=== PATIENT | female | born 1960 | race American Indian/Alaskan Native ===

== ENCOUNTER 2016-08-11 07:21 | Emergency (ER) | payer MEDICAID, OTHER ==
[2016-08-11] MEDS ORDERED: TORADOL IM ONE (09:11)
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
[2016-08-11] MEDS ORDERED: MOTRIN ONE (09:51)
[2016-08-11] MEDS ORDERED: MOTRIN PO ONE (09:59)
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
[2016-08-11 11:35] VITALS: BP 140/72
== END 2016-08-11 12:14 | disposition home or self-care (01) ==
LOC: ED 07:21
DX: S16.1XXA Strain of muscle, fascia and tendon at neck level, initial encounter (principal); M47.819 Spondylosis without myelopathy or radiculopathy, site unspecified; S32.010B Wedge compression fracture of first lumbar vertebra, initial encounter for open fracture; I10 Essential (primary) hypertension; M54.6 Pain in thoracic spine; Z86.73 Personal history of transient ischemic attack (TIA), and cerebral infarction without residual deficits; F17.200 Nicotine dependence, unspecified, uncomplicated; V43.32XA Unspecified car occupant injured in collision with other type car in nontraffic accident, initial encounter; Y92.488 Other paved roadways as the place of occurrence of the external cause; Y93.89 Activity, other specified; Y99.8 Other external cause status
CPT/HCPCS: 72125; 72128; 72131; 99283; J1885

== ENCOUNTER 2016-11-01 12:32 | Emergency (ER) | payer SELFPAY ==
[2016-11-01 13:08] VITALS: BP 190/104
--- NOTE | 2016-11-02 17:47 | ED Elopement Review ---
ED Pt Elopement review - Call Back decision Pt Call Back Decision: Pt to F/U with PMD (for bp)
== END 2016-11-01 20:20 | disposition other institution (70) ==
LOC: ED 12:32
DX: M54.9 Dorsalgia, unspecified (principal); Z53.21 Procedure and treatment not carried out due to patient leaving prior to being seen by health care provider

== ENCOUNTER 2017-03-09 14:19 | Inpatient (IN) | payer MEDICAID, OTHER ==
[2017-03-09 15:07] LABS: Basophils % (Auto) 1.3 % (0.0-1.8); Hematocrit 41.9 % (30.3-42.9); Hemoglobin 14.2 gm/dl (10.1-14.3); Mean Corpuscular HGB Conc 34 % (30-34); Mean Corpuscular Hemoglobin 30 pg (28-32); Mean Corpuscular Volume 89 fl (79-97); Platelet Count 330 K/mm3 (140-440); Red Blood Count 4.69 M/mm3 (3.65-5.03); Red Cell Distribution Width 13.1 % (13.2-15.2); White Blood Count 8.8 K/mm3 (4.5-11.0)
[2017-03-09 15:10] LABS: INR 0.9 (0.87-1.13)
[2017-03-09 15:22] LABS: Partial Thromboplastin Time 32.1 Sec. (24.2-36.6)
[2017-03-09 15:26] LABS: Alanine Aminotransferase 73 units/L (7-56); Albumin 4.8 g/dL (3.9-5); Albumin/Globulin Ratio 1.2 %; Alkaline Phosphatase 197 units/L (35-129); Anion Gap 25 mmol/L; BUN/Creatinine Ratio 21; Blood Urea Nitrogen 17 mg/dL (7-17); Calcium 10.1 mg/dL (8.4-10.2); Carbon Dioxide 22 mmol/L (22-30); Chloride 84.4 mmol/L (98-107); Potassium 4.2 mmol/L (3.6-5.0); Sodium 127 mmol/L (137-145); Total Protein 8.9 g/dL (6.3-8.2)
[2017-03-09 15:40] LABS: Glucose 591 mg/dL (65-100)
[2017-03-09] MEDS ORDERED: NACL 0.9% 1000 ML 1,000 ML IV ONE (16:48)
[2017-03-09] MEDS ORDERED: CATAPRES PO ONE (16:50)
--- NOTE | 2017-03-09 16:54 | Emergency Department Report ---
HPI - General Chief Complaint: Sore Throat Time Seen by Provider: 03/09/17 16:37 - HPI HPI: Room 23 The patient is a 56-year-old female presenting with a chief complaint of chest pain shortness of breath and dizziness. The patient states for possible one- two weeks she has had a dry throat, laryngitis and shortness of breath. Patient does admit to polydipsia and polyuria for one week. The patient states this morning she developed substernal chest pain described as "hurting" in nature. Patient does admit to shortness of breath and nausea but denies vomiting. Patient does admit to diaphoresis with her chest pain. The patient states she's never had a stress test or cardiac catheterization Location: [See above] Duration: One to 2 weeks Quality: "Hurting" Severity: Moderate Modifying factors: [see above] Context: [see above] Mode of transportation: Unknown ED Past Medical Hx - Past Medical History Hx Hypertension: Yes Hx CVA: Yes Additional medical history: Post menopausal bleeding - Surgical History Additional Surgical History: , tubal ligation. BILATERAL WRIST - CARPAL TUNNEL RELEASE - Family History Family history: no significant - Social History Smoking Status: Never Smoker Substance Use Type: None - Medications Home Medications: Home Medications Medication Instructions Recorded Confirmed Last Taken Type HYDROcodone/APAP 5-325 [[place] 1 each PO Q6HR PRN #30 tablet 01/06/15 Unknown Rx 5/325] Ibuprofen [Motrin 600 MG tab] 600 mg PO Q8H PRN #14 tablet 09/04/15 Unknown Rx traMADol [Ultram] 50 mg PO Q6HR PRN #10 tablet 09/04/15 Unknown Rx Lisinopril/Hydrochlorothiazide 1 each PO QDAY #30 tablet 06/24/16 Unknown Rx [Zestoretic 20-12.5 mg] traMADol [Ultram] 50 mg PO Q6HR PRN #10 tablet 06/24/16 Unknown Rx Cyclobenzaprine HCl [Flexeril 5 MG 5 mg PO TID PRN #30 tab 08/11/16 Unknown Rx TAB] Cyclobenzaprine [Flexeril] 10 mg PO TID PRN #21 tablet 08/11/16 Unknown Rx traMADol [Ultram] 50 mg PO Q6HR PRN #20 tablet 08/11/16 Unknown Rx ED Review of Systems ROS: Stated complaint: HEADACHE, SOB, DIZINESS, MOLD EXP Other details as noted in HPI Constitutional: weakness ENT: throat pain Respiratory: shortness of breath Cardiovascular: chest pain Endocrine: increased thirst, increased urine Gastrointestinal: nausea. denies: vomiting Genitourinary: frequency Neurological: headache Physical Exam - Physical Exam Vital Signs: Vital Signs 03/09/17 03/09/17 14:24 16:16 Temperature 98.4 F 99 F Pulse Rate 105 H 107 H Respiratory 18 Rate Blood Pressure 208/124 197/136 Physical Exam: GENERAL: The patient is well-developed well-nourished female lying on stretcher not appearing to be in acute distress. [] HEENT: Normocephalic. Atraumatic. Extraocular motions are intact. Oropharynx clear NECK: Supple. Trachea midline CHEST/LUNGS: Clear to auscultation. There is no respiratory distress noted. HEART/CARDIOVASCULAR: Regular. There is no tachycardia. There is no gallop rub or murmur. ABDOMEN: Abdomen is soft, nontender. Patient has normal bowel sounds. There is no abdominal distention. SKIN: There is no rash. There is no edema. There is no diaphoresis. NEURO: The patient is awake, alert, and oriented. The patient is cooperative. The patient has no focal neurologic deficits. The patient has normal speech. Cranial nerves II through XII grossly intact, no drift MUSCULOSKELETAL: There is no evidence of acute injury. ED Course Vital Signs 03/09/17 03/09/17 14:24 16:16 Temperature 98.4 F 99 F Pulse Rate 105 H 107 H Respiratory 18 Rate Blood Pressure 208/124 197/136 ED Medical Decision Making - Lab Data Result diagrams: 03/09/17 14:47 03/09/17 14:47 Laboratory Tests 03/09/17 03/09/17 03/09/17 14:47 14:47 14:47 WBC 8.8 RBC 4.69 Hgb 14.2 Hct 41.9 MCV 89 MCH 30 MCHC 34 RDW 13.1 L Plt Count 330 Lymph % (Auto) 28.0 [place] % (Auto) 7.6 H Eos % (Auto) 1.0 Baso % (Auto) 1.3 Lymph # 2.5 [place] # 0.7 Eos # 0.1 Baso # 0.1 Seg Neutrophils % 62.1 Seg Neutrophils # 5.5 PT 12.6 INR 0.90 APTT 32.1 VBG pH Sodium 127 L Potassium 4.2 Chloride 84.4 L Carbon Dioxide 22 Anion Gap 25 BUN 17 Creatinine 0.8 Estimated GFR > 60 BUN/Creatinine Ratio 21 Glucose 591 H* POC Glucose Calcium 10.1 Total Bilirubin 0.70 AST 94 H ALT 73 H Alkaline Phosphatase 197 H Total Creatine Kinase CK-MB (CK-2) CK-MB (CK-2) Rel Index Troponin T < 0.010 Total Protein 8.9 H Albumin 4.8 Albumin/Globulin Ratio 1.2 03/09/17 03/09/17 03/09/17 16:59 16:59 17:54 WBC RBC Hgb Hct MCV MCH MCHC RDW Plt Count Lymph % (Auto) [place] % (Auto) Eos % (Auto) Baso % (Auto) Lymph # [place] # Eos # Baso # Seg Neutrophils % Seg Neutrophils # PT INR APTT VBG pH 7.354 Sodium Potassium Chloride Carbon Dioxide Anion Gap BUN Creatinine Estimated GFR BUN/Creatinine Ratio Glucose POC Glucose 373 H Calcium Total Bilirubin AST ALT Alkaline Phosphatase Total Creatine Kinase 359 H CK-MB (CK-2) 2.1 CK-MB (CK-2) Rel Index 0.5 Troponin T < 0.010 Total Protein Albumin Albumin/Globulin Ratio - EKG Data -: EKG Interpreted by Me EKG shows normal: sinus rhythm Rate: normal - EKG Data When compared to previous EKG there are: changes noted Interpretation: nonspecific ST-T wave ap (new T-wave inversion in V2, flattened T-wave in lead V3 when compared to previous EKG dated 08/09/2012) - Radiology Data Radiology results: image reviewed (chest x-ray) interpreted by me: Chest x-ray-no focal of leuk trase, no pneumothorax - Differential Diagnosis new-onset diabetes, DKA, ACS, pericarditis, GERD Critical care attestation.: If time is entered above; I have spent that time in minutes in the direct care of this critically ill patient, excluding procedure time. ED Disposition Clinical Impression: Chest pain, Diabetes mellitus, new onset, Hyperglycemia Disposition: OP ADMIT IP TO THIS HOSP Is pt being admited?: Yes Does the pt Need Aspirin: Yes Condition: Stable Instructions: Chest Pain (ED), Diabetes Mellitus Type 2 in Adults (ED) Referrals: PRIMARY CARE, [Primary Care Provider] - 3-5 Days Time of Disposition: 18:06 (hospitalist paged (Dr Sifuentes))
[2017-03-09 17:36] LABS: Creatine Kinase MB 2.1 ng/mL (0.0-4.0)
[2017-03-09 17:37] LABS: Creatine Kinase 359 units/L (30-135)
[2017-03-09] MEDS ORDERED: ASPIRIN PO ONE (18:06)
[2017-03-09 18:35] LABS: Bilirubin,Urine NEG (Negative); Blood,Urine NEG (Negative); Ketones,Urine NEG (Negative); Leukocyte Esterase,Urine NEG (Negative); Mucus,Urine FEW /HPF; Nitrite,Urine NEG (Negative); Protein,Urine <15 mg/dL mg/dL (Negative); RBC,Urine < 1.0 /HPF (0.0-6.0); Urobilinogen,Urine < 2.0 mg/dL (<2.0)
--- NOTE | 2017-03-09 18:44 | XRay Report ---
FINAL REPORT EXAM: XR CHEST 1V AP HISTORY: chest pain TECHNIQUE: Frontal non grid chest x-ray Comparison: None FINDINGS: Lung volumes are low. There is mild cardiomegaly. There is secondary bronchovascular crowding in the bases. Subtle infiltrates could be missed. No pneumothorax. IMPRESSION: Unremarkable low volume exam. Subtle basilar infiltrates could be missed.
[2017-03-09] MEDS ORDERED: APRESOLINE IV PRN (21:23)
[2017-03-09] MEDS ORDERED: ZOFRAN IV PRN (21:23)
[2017-03-09] MEDS ORDERED: MILK OF MAGNESIA PO PRN (21:23)
[2017-03-09] MEDS ORDERED: DULCOLAX PR PRN (21:23)
[2017-03-09] MEDS ORDERED: PERCOCET 5/325 PO PRN (21:23)
[2017-03-09] MEDS ORDERED: D50W (25GM) Syringe IV PRN (21:23)
[2017-03-09] MEDS ORDERED: PROVENTIL IH PRN (21:28)
--- NOTE | 2017-03-09 21:29 | History and Physical Report ---
History of Present Illness Date of examination: 03/09/17 History of present illness: 56-year-old woman with a history of hypertension comes emergency room with complaints of polyuria, polydipsia, dry mouth 2 weeks. Also complaining of chest pain in the epigastric area which she describes as a needlelike sensation , intermittent in nature over 10 minutes, intensity 5/10, radiating to the right shoulder, she cannot identify exacerbating or relieving factor. Admits to nausea, shortness of breath, no vomiting, diaphoresis or palpitation Review Of Systems: Constitutional: no weight loss Ears, eyes, nose, mouth and throat: no nasal congestion, no nasal discharge, no sinus pressure, blurry vision, diplopia Neck: No neck pain or rigidity. Cardiovascular: NO orthopnea, palpitations Respiratory: No shortness of breath, cough Gastrointestinal: NO abdominal pain, hematochezia Genitourinary : no dysuria, frequency , hematuria Musculoskeletal: no muscle ache Integumentary: no rash, no pruritis Neurological: no parathesias, focal weakness Endocrine: no cold or heat intolerance Hematologic/Lymphatic: no easy bruising, no easy bleeding, no gland swelling Allergic/Immunologic: no urticaria, no angioedema. PAST MEDICAL HISTORY:hypertension PAST SURGICAL HISTORY: Carpal tunnel release, FAILY HISTORY:hypertension SOCIAL HISTORY: Denies tobacco, alcohol, drug Medications and Allergies Allergies Allergy/AdvReac Type Severity Reaction Status Date / Time No Known Allergies Allergy Verified 03/09/17 14:23 Home Medications Medication Instructions Recorded Confirmed Last Taken Type Ibuprofen [Motrin 600 MG tab] 600 mg PO Q8H PRN #14 tablet 09/04/15 03/09/17 Unknown Rx traMADol [Ultram 50 MG tab] 50 mg PO Q6HR PRN #10 tablet 09/04/15 03/09/17 Unknown Rx traMADol [Ultram] 50 mg PO Q6HR PRN #10 tablet 06/24/16 03/09/17 Unknown Rx Cyclobenzaprine HCl [Flexeril 5 MG 5 mg PO TID PRN #30 tab 08/11/16 03/09/17 Unknown Rx TAB] Cyclobenzaprine [Flexeril 10 MG 10 mg PO TID PRN #21 tablet 08/11/16 03/09/17 Unknown Rx TAB] traMADol [Ultram] 50 mg PO Q6HR PRN #20 tablet 08/11/16 03/09/17 Unknown Rx ALBUTEROL NEB's [Proventil 0.083% 2.5 mg IH Q4HRT PRN 30 Days nebu 03/13/17 Unknown Rx NEBS] Diabetic Supplies,Miscell [Enlite 1 each MC Q8HR 30 Days miscell 03/13/17 Unknown Rx Serter] Diabetic Supplies,Miscell [Ez-Vac] 1 each MC Q8HR 30 Days miscell 03/13/17 Unknown Rx Hydrochlorothiazide [HCTZ] 12.5 mg PO QDAY 30 Days capsule 03/13/17 Unknown Rx Insulin NPH/Regular [NovoLIN 70/30] 10 unit SUB-Q QPM 30 Days units 03/13/17 Unknown Rx Insulin NPH/Regular [NovoLIN 70/30] 15 unit SUB-Q QAMDIAB 30 Days 03/13/17 Unknown Rx units Levofloxacin [Levaquin TAB] 750 mg PO Q24HR #5 tablet 03/13/17 Unknown Rx Lisinopril/Hydrochlorothiazide 1 each PO QDAY #30 tablet 03/13/17 Unknown Rx [Zestoretic 20-12.5 mg] metFORMIN [Glucophage] 500 mg PO BIDDIAB #60 tablet 03/13/17 Unknown Rx traMADol [Ultram 50 MG tab] 50 mg PO Q6H PRN 14 Days tablet 03/13/17 Unknown Rx Active Meds: Active Medications Acetaminophen (Tylenol) 650 mg PO Q4H PRN PRN Reason: Pain MILD(1-3)/Fever >100.5/MILNER Albuterol (Proventil) 2.5 mg IH Q4H PRN PRN Reason: Wheezing Bisacodyl (Dulcolax) 10 mg MI QDAY PRN PRN Reason: Constipation unrelieved by MOM Dextrose (D50w (25gm) Syringe) 50 ml IV PRN PRN PRN Reason: Hypoglycemia Enoxaparin Sodium (Lovenox) 30 mg SUB-Q QDAY BAY Hydralazine HCl (Apresoline) 5 mg IV Q6H PRN PRN Reason: Hypertension Sodium Chloride (Nacl 0.45% 1000 Ml) 1,000 mls @ 75 mls/hr IV DIRECT BAY Insulin Aspart (Novolog) 0 units SUB-Q ACHS BAY PRN Reason: Protocol Magnesium Hydroxide (Milk Of Magnesia) 30 ml PO Q4H PRN PRN Reason: Constipation Miscellaneous Medication (Lisinopril/Hydrochlorothiazide [Zestoretic 20-12.5 Mg] ) 1 each PO QDAY BAY Ondansetron HCl (Zofran) 4 mg IV Q8H PRN PRN Reason: N/V unrelieved by Reglan Oxycodone/Acetaminophen (Percocet 5/325) 1 tab PO Q6H PRN PRN Reason: Pain, Moderate (4-6) Exam - Physical Exam Narrative exam: Gen. appearance: Patient lying in bed in no acute distress HEENT: Normocephalic/atraumatic, pupils equal round reactive to light, extra alkaline movement intact, no scleral icterus, no JVD or thyromegaly or nodule, neck is supple, mucous membrane moist, no erythema or exudate Heart: S1-S2, regular rate and rhythm Lungs: Clear to auscultation bilateral breathing comfortable Abdomen: Positive bowel sounds, nontender, nondistended, no organomegaly Extremities: No edema, cyanosis, clubbing Neuro:: Oriented 3 , cranial nerves II-12 intact, speech, motor intact Skin: No rash, nodules, warm dry - Constitutional Vitals: Temp Pulse Resp BP Pulse Ox 99 F 74 16 157/103 97 03/09/17 16:16 03/09/17 17:54 03/09/17 17:54 03/09/17 17:54 03/09/17 17:54 Results - Labs CBC & Chem 7: 03/09/17 14:47 03/13/17 05:28 Labs: Abnormal lab results 03/09/17 03/09/17 03/09/17 Range/Units 14:47 14:47 16:59 RDW 13.1 L (13.2-15.2) % [place] % (Auto) 7.6 H (0.0-7.3) % Sodium 127 L (137-145) mmol/L Chloride 84.4 L (98-107) mmol/L Glucose 591 H* (65-100) mg/dL POC Glucose (70-105) AST 94 H (5-40) units/L ALT 73 H (7-56) units/L Alkaline Phosphatase 197 H (35-129) units/L Total Creatine Kinase 359 H (30-135) units/L Total Protein 8.9 H (6.3-8.2) g/dL Ur Specific [place] (1.003-1.030) 03/09/17 03/09/17 03/09/17 Range/Units 17:54 17:55 19:17 RDW (13.2-15.2) % [place] % (Auto) (0.0-7.3) % Sodium (137-145) mmol/L Chloride (98-107) mmol/L Glucose (65-100) mg/dL POC Glucose 373 H 326 H (70-105) AST (5-40) units/L ALT (7-56) units/L Alkaline Phosphatase (35-129) units/L Total Creatine Kinase (30-135) units/L Total Protein (6.3-8.2) g/dL Ur Specific [place] 1.031 H (1.003-1.030) - Imaging and Cardiology EKG: image reviewed Chest x-ray: image reviewed Assessment and Plan Assessment Hypertensive urgency Chest pain secondary to #1 Community acquired pneumonia New-onset diabetes Plan Admit to medicine Start IV hydralazine as needed for blood pressure control Check cardiac enzymes, obtain stress test Start aspirin, IV morphine, IV Levaquin, follow cultures Check fingersticks and initiate insulin sliding scale Consult dietary for diabetes education DVT prophylaxis
[2017-03-09] MEDS: NOVOLOG SUB-Q SCH (23:06)
[2017-03-09] MEDS: TYLENOL PO PRN (23:10)
[2017-03-09] MEDS: NACL 0.45% 1000 ML 1,000 ML IV SCH (23:15)
[2017-03-10] MEDS ORDERED: LEVEMIR SUB-Q ONE (01:53)
[2017-03-10] MEDS: LEVAQUIN PO SCH (05:31)
[2017-03-10] MEDS: TYLENOL PO PRN (05:31)
[2017-03-10] MEDS ORDERED: LEXISCAN IV ONE ×2 (08:03→08:09)
[2017-03-10] MEDS: NOVOLOG SUB-Q SCH ×4 (08:32→22:12)
[2017-03-10] MEDS: LOVENOX SUB-Q SCH ×2 (12:14→12:19)
[2017-03-10] MEDS: ZESTRIL PO SCH (12:14)
[2017-03-10] MEDS: HCTZ PO SCH (12:14)
--- NOTE | 2017-03-10 13:31 | Progress Note ---
Assessment and Plan - Patient Problems (1) Pneumonia Current Visit: Yes Status: Acute Qualifiers: Laterality: unspecified laterality Plan to address problem: Also likely community-acquired pneumonia. Patient does complain of having mold in the house. Right now she has a chronic cough some infiltrates on x-ray continue Levaquin for now. Nebulizers when necessary. Smoking cessation for tobacco abuse. (2) Chest pain Current Visit: Yes Status: Acute Plan to address problem: Chest pain atypical chest pain stress test negative cardiac isoenzymes negative. Chest pain is resolved most likely from pneumonia coughing. (3) Diabetes mellitus, new onset Current Visit: Yes Status: Acute Plan to address problem: Patient has no onset diabetes. Awaiting education diabetic education on how to give insulin shots in preparation for discharge. Also how to obtain her Accu- Cheks. Patient will follow-up with primary care physician for possible transfer to oral hypoglycemics. Patient however remains uncontrolled at this time. We'll increase 7030 insulin to 18 units twice a day. (4) Hyperglycemia Current Visit: Yes Status: Acute (5) Hypertension Current Visit: No Status: Chronic (6) Tobacco abuse Current Visit: No Status: Chronic Plan to address problem: Smoking cessation nicotine patch. History Interval history: At present patient is very upset that she now found out she has diabetes. Discussed findings of stress test with her and family. All questions and concerns answered to their satisfaction. Patient upset that she has to take insulin now. Informed her that her Accu-Chek was 503 and 330 Hospitalist Physical - Constitutional Vitals: Temp Pulse Resp BP Pulse Ox 98.2 F 83 20 182/92 97 03/10/17 13:10 03/10/17 13:10 03/10/17 13:10 03/10/17 13:10 03/10/17 13:10 General appearance: Present: mild distress - EENT Eyes: Present: PERRL, EOM intact ENT: hearing intact, clear oral mucosa, dentition normal - Neck Neck: Present: supple, normal ROM - Respiratory Respiratory effort: normal Respiratory: bilateral: CTA - Cardiovascular Rhythm: regular Heart Sounds: Present: S1 & S2 - Extremities Extremities: no ischemia, pulses intact, pulses symmetrical, No edema Peripheral Pulses: within normal limits - Abdominal General gastrointestinal: soft, non-tender, non-distended - Integumentary Integumentary: Present: clear, warm, dry - Psychiatric Psychiatric: appropriate mood/affect - Neurologic Neurologic: CNII-XII intact Results - Labs CBC & Chem 7: 03/09/17 14:47 03/09/17 14:47 Labs: Laboratory Last Values WBC 8.8 K/mm3 (4.5-11.0) 03/09/17 14:47 RBC 4.69 M/mm3 (3.65-5.03) 03/09/17 14:47 Hgb 14.2 gm/dl (10.1-14.3) 03/09/17 14:47 Hct 41.9 % (30.3-42.9) 03/09/17 14:47 MCV 89 fl (79-97) 03/09/17 14:47 MCH 30 pg (28-32) 03/09/17 14:47 MCHC 34 % (30-34) 03/09/17 14:47 RDW 13.1 % (13.2-15.2) L 03/09/17 14:47 Plt Count 330 K/mm3 (140-440) 03/09/17 14:47 Lymph % (Auto) 28.0 % (13.4-35.0) 03/09/17 14:47 [place] % (Auto) 7.6 % (0.0-7.3) H 03/09/17 14:47 Eos % (Auto) 1.0 % (0.0-4.3) 03/09/17 14:47 Baso % (Auto) 1.3 % (0.0-1.8) 03/09/17 14:47 Lymph # 2.5 K/mm3 (1.2-5.4) 03/09/17 14:47 [place] # 0.7 K/mm3 (0.0-0.8) 03/09/17 14:47 Eos # 0.1 K/mm3 (0.0-0.4) 03/09/17 14:47 Baso # 0.1 K/mm3 (0.0-0.1) 03/09/17 14:47 Seg Neutrophils % 62.1 % (40.0-70.0) 03/09/17 14:47 Seg Neutrophils # 5.5 K/mm3 (1.8-7.7) 03/09/17 14:47 PT 12.6 Sec. (12.2-14.9) 03/09/17 14:47 INR 0.90 (0.87-1.13) 03/09/17 14:47 APTT 32.1 Sec. (24.2-36.6) 03/09/17 14:47 VBG pH 7.354 (7.320-7.420) 03/09/17 16:59 Sodium 127 mmol/L (137-145) L 03/09/17 14:47 Potassium 4.2 mmol/L (3.6-5.0) 03/09/17 14:47 Chloride 84.4 mmol/L (98-107) L 03/09/17 14:47 Carbon Dioxide 22 mmol/L (22-30) 03/09/17 14:47 Anion Gap 25 mmol/L 03/09/17 14:47 BUN 17 mg/dL (7-17) 03/09/17 14:47 Creatinine 0.8 mg/dL (0.7-1.2) 03/09/17 14:47 Estimated GFR > 60 ml/min 03/09/17 14:47 BUN/Creatinine Ratio 21 % 03/09/17 14:47 Glucose 591 mg/dL (65-100) H* 03/09/17 14:47 POC Glucose 357 (70-105) H 03/10/17 11:46 Hemoglobin A1c 11.8 % (4-6) H 03/09/17 14:47 Calcium 10.1 mg/dL (8.4-10.2) 03/09/17 14:47 Total Bilirubin 0.70 mg/dL (0.1-1.2) 03/09/17 14:47 AST 94 units/L (5-40) H 03/09/17 14:47 ALT 73 units/L (7-56) H 03/09/17 14:47 Alkaline Phosphatase 197 units/L (35-129) H 03/09/17 14:47 Total Creatine Kinase 359 units/L (30-135) H 03/09/17 16:59 CK-MB (CK-2) 2.1 ng/mL (0.0-4.0) 03/09/17 16:59 CK-MB (CK-2) Rel Index 0.5 (0-4) 03/09/17 16:59 Troponin T < 0.010 ng/mL (0.00-0.029) 03/09/17 20:50 Total Protein 8.9 g/dL (6.3-8.2) H 03/09/17 14:47 Albumin 4.8 g/dL (3.9-5) 03/09/17 14:47 Albumin/Globulin Ratio 1.2 % 03/09/17 14:47 Urine Color Yellow (Yellow) 03/09/17 17:55 Urine Turbidity Clear (Clear) 03/09/17 17:55 Urine pH 5.0 (5.0-7.0) 03/09/17 17:55 Ur Specific [place] 1.031 (1.003-1.030) H 03/09/17 17:55 Urine Protein <15 mg/dl mg/dL (Negative) 03/09/17 17:55 Urine Glucose (UA) >=500 mg/dL (Negative) 03/09/17 17:55 Urine Ketones Neg mg/dL (Negative) 03/09/17 17:55 Urine Blood Neg (Negative) 03/09/17 17:55 Urine Nitrite Neg (Negative) 03/09/17 17:55 Urine Bilirubin Neg (Negative) 03/09/17 17:55 Urine Urobilinogen < 2.0 mg/dL (<2.0) 03/09/17 17:55 Ur Leukocyte Esterase Neg (Negative) 03/09/17 17:55 Urine WBC (Auto) 1.0 /HPF (0.0-6.0) 03/09/17 17:55 Urine RBC (Auto) < 1.0 /HPF (0.0-6.0) 03/09/17 17:55 Urine Mucus Few /HPF 03/09/17 17:55
[2017-03-10] MEDS: LEVEMIR SUB-Q SCH (21:52)
[2017-03-11] MEDS: NACL 0.45% 1000 ML 1,000 ML IV SCH (03:29)
[2017-03-11] MEDS: NOVOLOG SUB-Q SCH ×4 (08:19→23:02)
[2017-03-11] MEDS: LEVAQUIN PO SCH (10:06)
[2017-03-11] MEDS: HCTZ PO SCH (10:06)
[2017-03-11] MEDS: LOVENOX SUB-Q SCH (10:07)
[2017-03-11] MEDS: ZESTRIL PO SCH (10:07)
--- NOTE | 2017-03-11 13:51 | Progress Note ---
Assessment and Plan - Patient Problems (1) Pneumonia Current Visit: Yes Status: Acute Qualifiers: Laterality: unspecified laterality Plan to address problem: Also likely community-acquired pneumonia. Patient does complain of having mold in the house. Right now she has a chronic cough some infiltrates on x-ray continue Levaquin for now. Nebulizers when necessary. Smoking cessation for tobacco abuse. Patient is afebrile white count normal. We'll change Levaquin to by mouth. Levaquin to by mouth. (2) Chest pain Current Visit: Yes Status: Acute Plan to address problem: Chest pain atypical chest pain stress test negative cardiac isoenzymes negative. Chest pain is resolved most likely from pneumonia coughing. (3) Diabetes mellitus, new onset Current Visit: Yes Status: Acute Plan to address problem: Patient blood sugar remains suboptimally controlled. We'll increase acting medication. 213 units daily at bedtime Levemir. Continue sliding-scale insulin coverage. Will need diabetic education. (4) Hyperglycemia Current Visit: Yes Status: Acute (5) Hypertension Current Visit: No Status: Chronic Qualifiers: Hypertension type: essential hypertension Qualified Code(s): I10 - Essential (primary) hypertension Plan to address problem: She has optimal control lisinopril continue renal protection. (6) Tobacco abuse Current Visit: No Status: Chronic Plan to address problem: Smoking cessation nicotine patch. (7) Angioedema Current Visit: Yes Status: Acute Plan to address problem: Echo to allergic reaction with Percocet. We'll DC Percocet start Ultram. History Interval history: Hospital course complicated by allergic reaction to Percocet. Patient had drooling lip swelling consistent with angioedema. Hospital course also complicated by uncontrolled blood sugar. Hospitalist Physical - Constitutional Vitals: Temp Pulse Resp BP Pulse Ox 97.6 F 73 20 101/69 98 03/11/17 12:00 03/11/17 12:00 03/11/17 12:00 03/11/17 12:00 03/11/17 12:00 General appearance: Present: mild distress, other (edema of the lips. Swelling around eyes.) - Neck Neck: Present: supple, normal ROM - Respiratory Respiratory effort: normal Respiratory: bilateral: CTA - Cardiovascular Rhythm: regular - Extremities Extremities: no ischemia, pulses intact, pulses symmetrical, No edema Peripheral Pulses: within normal limits - Abdominal General gastrointestinal: soft, non-tender, non-distended - Integumentary Integumentary: Present: clear, warm, dry - Psychiatric Psychiatric: appropriate mood/affect, cooperative - Neurologic Neurologic: CNII-XII intact Results - Labs CBC & Chem 7: 03/09/17 14:47 03/09/17 14:47 Labs: Laboratory Last Values WBC 8.8 K/mm3 (4.5-11.0) 03/09/17 14:47 RBC 4.69 M/mm3 (3.65-5.03) 03/09/17 14:47 Hgb 14.2 gm/dl (10.1-14.3) 03/09/17 14:47 Hct 41.9 % (30.3-42.9) 03/09/17 14:47 MCV 89 fl (79-97) 03/09/17 14:47 MCH 30 pg (28-32) 03/09/17 14:47 MCHC 34 % (30-34) 03/09/17 14:47 RDW 13.1 % (13.2-15.2) L 03/09/17 14:47 Plt Count 330 K/mm3 (140-440) 03/09/17 14:47 Lymph % (Auto) 28.0 % (13.4-35.0) 03/09/17 14:47 [place] % (Auto) 7.6 % (0.0-7.3) H 03/09/17 14:47 Eos % (Auto) 1.0 % (0.0-4.3) 03/09/17 14:47 Baso % (Auto) 1.3 % (0.0-1.8) 03/09/17 14:47 Lymph # 2.5 K/mm3 (1.2-5.4) 03/09/17 14:47 [place] # 0.7 K/mm3 (0.0-0.8) 03/09/17 14:47 Eos # 0.1 K/mm3 (0.0-0.4) 03/09/17 14:47 Baso # 0.1 K/mm3 (0.0-0.1) 03/09/17 14:47 Seg Neutrophils % 62.1 % (40.0-70.0) 03/09/17 14:47 Seg Neutrophils # 5.5 K/mm3 (1.8-7.7) 03/09/17 14:47 PT 12.6 Sec. (12.2-14.9) 03/09/17 14:47 INR 0.90 (0.87-1.13) 03/09/17 14:47 APTT 32.1 Sec. (24.2-36.6) 03/09/17 14:47 VBG pH 7.354 (7.320-7.420) 03/09/17 16:59 Sodium 127 mmol/L (137-145) L 03/09/17 14:47 Potassium 4.2 mmol/L (3.6-5.0) 03/09/17 14:47 Chloride 84.4 mmol/L (98-107) L 03/09/17 14:47 Carbon Dioxide 22 mmol/L (22-30) 03/09/17 14:47 Anion Gap 25 mmol/L 03/09/17 14:47 BUN 17 mg/dL (7-17) 03/09/17 14:47 Creatinine 0.8 mg/dL (0.7-1.2) 03/09/17 14:47 Estimated GFR > 60 ml/min 03/09/17 14:47 BUN/Creatinine Ratio 21 % 03/09/17 14:47 Glucose 591 mg/dL (65-100) H* 03/09/17 14:47 POC Glucose 318 (70-105) H 03/11/17 12:17 Hemoglobin A1c 11.8 % (4-6) H 03/09/17 14:47 Calcium 10.1 mg/dL (8.4-10.2) 03/09/17 14:47 Total Bilirubin 0.70 mg/dL (0.1-1.2) 03/09/17 14:47 AST 94 units/L (5-40) H 03/09/17 14:47 ALT 73 units/L (7-56) H 03/09/17 14:47 Alkaline Phosphatase 197 units/L (35-129) H 03/09/17 14:47 Total Creatine Kinase 359 units/L (30-135) H 03/09/17 16:59 CK-MB (CK-2) 2.1 ng/mL (0.0-4.0) 03/09/17 16:59 CK-MB (CK-2) Rel Index 0.5 (0-4) 03/09/17 16:59 Troponin T < 0.010 ng/mL (0.00-0.029) 03/09/17 20:50 Total Protein 8.9 g/dL (6.3-8.2) H 03/09/17 14:47 Albumin 4.8 g/dL (3.9-5) 03/09/17 14:47 Albumin/Globulin Ratio 1.2 % 03/09/17 14:47 Urine Color Yellow (Yellow) 03/09/17 17:55 Urine Turbidity Clear (Clear) 03/09/17 17:55 Urine pH 5.0 (5.0-7.0) 03/09/17 17:55 Ur Specific [place] 1.031 (1.003-1.030) H 03/09/17 17:55 Urine Protein <15 mg/dl mg/dL (Negative) 03/09/17 17:55 Urine Glucose (UA) >=500 mg/dL (Negative) 03/09/17 17:55 Urine Ketones Neg mg/dL (Negative) 03/09/17 17:55 Urine Blood Neg (Negative) 03/09/17 17:55 Urine Nitrite Neg (Negative) 03/09/17 17:55 Urine Bilirubin Neg (Negative) 03/09/17 17:55 Urine Urobilinogen < 2.0 mg/dL (<2.0) 03/09/17 17:55 Ur Leukocyte Esterase Neg (Negative) 03/09/17 17:55 Urine WBC (Auto) 1.0 /HPF (0.0-6.0) 03/09/17 17:55 Urine RBC (Auto) < 1.0 /HPF (0.0-6.0) 03/09/17 17:55 Urine Mucus Few /HPF 03/09/17 17:55
[2017-03-11] MEDS ORDERED: LEVEMIR SUB-Q ONE (15:00)
[2017-03-11] MEDS: LEVEMIR SUB-Q SCH (23:00)
[2017-03-12] MEDS: NOVOLOG SUB-Q SCH ×4 (08:08→23:07)
[2017-03-12] MEDS: LOVENOX SUB-Q SCH (09:31)
[2017-03-12] MEDS: ZESTRIL PO SCH (09:31)
[2017-03-12] MEDS: LEVAQUIN PO SCH (09:32)
[2017-03-12] MEDS: HCTZ PO SCH (09:32)
--- NOTE | 2017-03-12 14:02 | Progress Note ---
<CHANDLER MILIAN - Last Filed: 03/12/17 14:22> Assessment and Plan Assessment and plan: Patient is a 56-year-old woman with a history of hypertension comes emergency room with complaints of polyuria, polydipsia, dry mouth 2 weeks. Also complaining of chest pain in the epigastric area. Pneumonia Most likely community-acquired pneumonia. Chest xray showed infiltrates Patient does complain of having mold in the house. Continue Levaquin IV Nebulizers when necessary. Chest Pain Most likely due to pneumonia coughing. Pain is resolved EKG normal sinus rhythm no ST elevation or T-wave inversion. Negative cardiac enzyme X3 Start on aspirin Nitroglycerin when necessary Morphine ordered for pain Cardiology consult Diabetes mellitus with Hyperglycemia/new onset Patient blood sugar remains suboptimally controlled. Accu-Chek before meals and at bedtime Sliding-scale insulin/NovoLog Continue on bedtime Levemir. Diabetic education. Hypertension Resume home antihypertensive medication IV hydralazine for SBP>160 Closely monitor blood pressure Tobacco abuse Smoking cessation nicotine patch. Patient strongly advised smoking. Angioedema Secondary to allergic reaction with Percocet. Percocet D/C and continue Ultram. Tobacco use Smoking cessation counseling done. Patient strongly advised to quit. DVT prophylaxis Lovenox History Interval history: Patient denies chest pain or shortness of breath. Labs and nursing notes reviewed. Hospitalist Physical - Constitutional Vitals: Temp Pulse Resp BP Pulse Ox 98.4 F 73 18 105/71 97 03/12/17 12:23 03/12/17 12:23 03/12/17 12:23 03/12/17 12:23 03/12/17 12:23 General appearance: Present: mild distress, other (edema of the lips. Swelling around eyes.) - EENT Eyes: Present: PERRL ENT: hearing intact - Neck Neck: Present: supple - Respiratory Respiratory effort: normal Respiratory: bilateral: wheezing (mild) - Cardiovascular Rhythm: regular Heart Sounds: Present: S1 & S2 - Abdominal General gastrointestinal: soft, non-tender - Integumentary Integumentary: Present: clear, warm, dry - Psychiatric Psychiatric: appropriate mood/affect - Neurologic Neurologic: moves all extremities - Allied Health Allied health notes reviewed: nursing Results - Labs CBC & Chem 7: 03/09/17 14:47 03/09/17 14:47 Labs: Laboratory Last Values WBC 8.8 K/mm3 (4.5-11.0) 03/09/17 14:47 RBC 4.69 M/mm3 (3.65-5.03) 03/09/17 14:47 Hgb 14.2 gm/dl (10.1-14.3) 03/09/17 14:47 Hct 41.9 % (30.3-42.9) 03/09/17 14:47 MCV 89 fl (79-97) 03/09/17 14:47 MCH 30 pg (28-32) 03/09/17 14:47 MCHC 34 % (30-34) 03/09/17 14:47 RDW 13.1 % (13.2-15.2) L 03/09/17 14:47 Plt Count 330 K/mm3 (140-440) 03/09/17 14:47 Lymph % (Auto) 28.0 % (13.4-35.0) 03/09/17 14:47 [place] % (Auto) 7.6 % (0.0-7.3) H 03/09/17 14:47 Eos % (Auto) 1.0 % (0.0-4.3) 03/09/17 14:47 Baso % (Auto) 1.3 % (0.0-1.8) 03/09/17 14:47 Lymph # 2.5 K/mm3 (1.2-5.4) 03/09/17 14:47 [place] # 0.7 K/mm3 (0.0-0.8) 03/09/17 14:47 Eos # 0.1 K/mm3 (0.0-0.4) 03/09/17 14:47 Baso # 0.1 K/mm3 (0.0-0.1) 03/09/17 14:47 Seg Neutrophils % 62.1 % (40.0-70.0) 03/09/17 14:47 Seg Neutrophils # 5.5 K/mm3 (1.8-7.7) 03/09/17 14:47 PT 12.6 Sec. (12.2-14.9) 03/09/17 14:47 INR 0.90 (0.87-1.13) 03/09/17 14:47 APTT 32.1 Sec. (24.2-36.6) 03/09/17 14:47 VBG pH 7.354 (7.320-7.420) 03/09/17 16:59 Sodium 127 mmol/L (137-145) L 03/09/17 14:47 Potassium 4.2 mmol/L (3.6-5.0) 03/09/17 14:47 Chloride 84.4 mmol/L (98-107) L 03/09/17 14:47 Carbon Dioxide 22 mmol/L (22-30) 03/09/17 14:47 Anion Gap 25 mmol/L 03/09/17 14:47 BUN 17 mg/dL (7-17) 03/09/17 14:47 Creatinine 0.8 mg/dL (0.7-1.2) 03/09/17 14:47 Estimated GFR > 60 ml/min 03/09/17 14:47 BUN/Creatinine Ratio 21 % 03/09/17 14:47 Glucose 591 mg/dL (65-100) H* 03/09/17 14:47 POC Glucose 294 (70-105) H 03/12/17 12:30 Hemoglobin A1c 11.8 % (4-6) H 03/09/17 14:47 Calcium 10.1 mg/dL (8.4-10.2) 03/09/17 14:47 Total Bilirubin 0.70 mg/dL (0.1-1.2) 03/09/17 14:47 AST 94 units/L (5-40) H 03/09/17 14:47 ALT 73 units/L (7-56) H 03/09/17 14:47 Alkaline Phosphatase 197 units/L (35-129) H 03/09/17 14:47 Total Creatine Kinase 359 units/L (30-135) H 03/09/17 16:59 CK-MB (CK-2) 2.1 ng/mL (0.0-4.0) 03/09/17 16:59 CK-MB (CK-2) Rel Index 0.5 (0-4) 03/09/17 16:59 Troponin T < 0.010 ng/mL (0.00-0.029) 03/09/17 20:50 Total Protein 8.9 g/dL (6.3-8.2) H 03/09/17 14:47 Albumin 4.8 g/dL (3.9-5) 03/09/17 14:47 Albumin/Globulin Ratio 1.2 % 03/09/17 14:47 Urine Color Yellow (Yellow) 03/09/17 17:55 Urine Turbidity Clear (Clear) 03/09/17 17:55 Urine pH 5.0 (5.0-7.0) 03/09/17 17:55 Ur Specific [place] 1.031 (1.003-1.030) H 03/09/17 17:55 Urine Protein <15 mg/dl mg/dL (Negative) 03/09/17 17:55 Urine Glucose (UA) >=500 mg/dL (Negative) 03/09/17 17:55 Urine Ketones Neg mg/dL (Negative) 03/09/17 17:55 Urine Blood Neg (Negative) 03/09/17 17:55 Urine Nitrite Neg (Negative) 03/09/17 17:55 Urine Bilirubin Neg (Negative) 03/09/17 17:55 Urine Urobilinogen < 2.0 mg/dL (<2.0) 03/09/17 17:55 Ur Leukocyte Esterase Neg (Negative) 03/09/17 17:55 Urine WBC (Auto) 1.0 /HPF (0.0-6.0) 03/09/17 17:55 Urine RBC (Auto) < 1.0 /HPF (0.0-6.0) 03/09/17 17:55 Urine Mucus Few /HPF 03/09/17 17:55 <SREE DIAMOND - Last Filed: 03/12/17 15:19> Assessment and Plan Assessment and plan: I saw and evaluated the patient. I agree with the findings and the plan of care as documented in the Nurse Practitioner's progress note, with the following corrections and additions. Patient still has hyperglycemia and I have changed her Insulin to novolin 70/30 20/01 will adjust as needed and possible d/c tomorrow. Hospitalist Physical - Constitutional Vitals: Temp Pulse Resp BP Pulse Ox 98.4 F 73 18 105/71 97 03/12/17 12:23 03/12/17 12:23 03/12/17 12:23 03/12/17 12:23 03/12/17 12:23 Results - Labs CBC & Chem 7: 03/09/17 14:47 03/09/17 14:47 Labs: Laboratory Last Values WBC 8.8 K/mm3 (4.5-11.0) 03/09/17 14:47 RBC 4.69 M/mm3 (3.65-5.03) 03/09/17 14:47 Hgb 14.2 gm/dl (10.1-14.3) 03/09/17 14:47 Hct 41.9 % (30.3-42.9) 03/09/17 14:47 MCV 89 fl (79-97) 03/09/17 14:47 MCH 30 pg (28-32) 03/09/17 14:47 MCHC 34 % (30-34) 03/09/17 14:47 RDW 13.1 % (13.2-15.2) L 03/09/17 14:47 Plt Count 330 K/mm3 (140-440) 03/09/17 14:47 Lymph % (Auto) 28.0 % (13.4-35.0) 03/09/17 14:47 [place] % (Auto) 7.6 % (0.0-7.3) H 03/09/17 14:47 Eos % (Auto) 1.0 % (0.0-4.3) 03/09/17 14:47 Baso % (Auto) 1.3 % (0.0-1.8) 03/09/17 14:47 Lymph # 2.5 K/mm3 (1.2-5.4) 03/09/17 14:47 [place] # 0.7 K/mm3 (0.0-0.8) 03/09/17 14:47 Eos # 0.1 K/mm3 (0.0-0.4) 03/09/17 14:47 Baso # 0.1 K/mm3 (0.0-0.1) 03/09/17 14:47 Seg Neutrophils % 62.1 % (40.0-70.0) 03/09/17 14:47 Seg Neutrophils # 5.5 K/mm3 (1.8-7.7) 03/09/17 14:47 PT 12.6 Sec. (12.2-14.9) 03/09/17 14:47 INR 0.90 (0.87-1.13) 03/09/17 14:47 APTT 32.1 Sec. (24.2-36.6) 03/09/17 14:47 VBG pH 7.354 (7.320-7.420) 03/09/17 16:59 Sodium 127 mmol/L (137-145) L 03/09/17 14:47 Potassium 4.2 mmol/L (3.6-5.0) 03/09/17 14:47 Chloride 84.4 mmol/L (98-107) L 03/09/17 14:47 Carbon Dioxide 22 mmol/L (22-30) 03/09/17 14:47 Anion Gap 25 mmol/L 03/09/17 14:47 BUN 17 mg/dL (7-17) 03/09/17 14:47 Creatinine 0.8 mg/dL (0.7-1.2) 03/09/17 14:47 Estimated GFR > 60 ml/min 03/09/17 14:47 BUN/Creatinine Ratio 21 % 03/09/17 14:47 Glucose 591 mg/dL (65-100) H* 03/09/17 14:47 POC Glucose 294 (70-105) H 03/12/17 12:30 Hemoglobin A1c 11.8 % (4-6) H 03/09/17 14:47 Calcium 10.1 mg/dL (8.4-10.2) 03/09/17 14:47 Total Bilirubin 0.70 mg/dL (0.1-1.2) 03/09/17 14:47 AST 94 units/L (5-40) H 03/09/17 14:47 ALT 73 units/L (7-56) H 03/09/17 14:47 Alkaline Phosphatase 197 units/L (35-129) H 03/09/17 14:47 Total Creatine Kinase 359 units/L (30-135) H 03/09/17 16:59 CK-MB (CK-2) 2.1 ng/mL (0.0-4.0) 03/09/17 16:59 CK-MB (CK-2) Rel Index 0.5 (0-4) 03/09/17 16:59 Troponin T < 0.010 ng/mL (0.00-0.029) 03/09/17 20:50 Total Protein 8.9 g/dL (6.3-8.2) H 03/09/17 14:47 Albumin 4.8 g/dL (3.9-5) 03/09/17 14:47 Albumin/Globulin Ratio 1.2 % 03/09/17 14:47 Urine Color Yellow (Yellow) 03/09/17 17:55 Urine Turbidity Clear (Clear) 03/09/17 17:55 Urine pH 5.0 (5.0-7.0) 03/09/17 17:55 Ur Specific [place] 1.031 (1.003-1.030) H 03/09/17 17:55 Urine Protein <15 mg/dl mg/dL (Negative) 03/09/17 17:55 Urine Glucose (UA) >=500 mg/dL (Negative) 03/09/17 17:55 Urine Ketones Neg mg/dL (Negative) 03/09/17 17:55 Urine Blood Neg (Negative) 03/09/17 17:55 Urine Nitrite Neg (Negative) 03/09/17 17:55 Urine Bilirubin Neg (Negative) 03/09/17 17:55 Urine Urobilinogen < 2.0 mg/dL (<2.0) 03/09/17 17:55 Ur Leukocyte Esterase Neg (Negative) 03/09/17 17:55 Urine WBC (Auto) 1.0 /HPF (0.0-6.0) 03/09/17 17:55 Urine RBC (Auto) < 1.0 /HPF (0.0-6.0) 03/09/17 17:55 Urine Mucus Few /HPF 03/09/17 17:55
[2017-03-13 06:07] LABS: Anion Gap 21 mmol/L; BUN/Creatinine Ratio 33; Blood Urea Nitrogen 23 mg/dL (7-17); Calcium 9.4 mg/dL (8.4-10.2); Carbon Dioxide 21 mmol/L (22-30); Chloride 95.4 mmol/L (98-107); Glucose 219 mg/dL (65-100); Potassium 3.8 mmol/L (3.6-5.0); Sodium 134 mmol/L (137-145)
[2017-03-13] MEDS: NOVOLOG SUB-Q SCH ×4 (08:44→21:39)
[2017-03-13] MEDS: ULTRAM PO PRN ×2 (09:03→17:45)
[2017-03-13] MEDS: ZESTRIL PO SCH ×2 (09:04→09:08)
[2017-03-13] MEDS: LOVENOX SUB-Q SCH (09:05)
[2017-03-13] MEDS: LEVAQUIN PO SCH (09:05)
[2017-03-13] MEDS: HCTZ PO SCH (09:05)
--- NOTE | 2017-03-13 09:31 | Discharge Summary ---
<CHANDLER MILIAN - Last Filed: 03/15/17 16:37> Providers - Providers Date of Admission: 03/09/17 21:23 Date of discharge: 03/13/17 Attending physician: SREE DIAMOND MD 03/09/17 21:26 Consult to Dietitian/Nutrition [CONS] Routine Physician Instructions: diabetic education insulin accuchck Reason For Exam: Reason for Consult: Diet education Primary care physician: [employer] Hospitalization Condition: Stable Hospital course: Patient is a 56-year-old woman with a history of hypertension comes emergency room with complaints of polyuria, polydipsia, dry mouth 2 weeks. Also complaining of chest pain in the epigastric area. Patient was diagnosed with hypertension, pneumonia, new-onset diabetes mellitus, angioedema and tobacco abuse.Chest xray showed infiltrates.She was treated with supplemental oxygen, aggressive nebulizer therapy, IV steroids, insulin and antibiotics. She is being discharged on oral antibiotic. Also D/C with oral steroid taper upon discharge along with insulin. Tobacco abuse smoking cessation counseling done. Patient strongly advised to quit. Patient clinically improved and stable for discharge. Patient was advised to follow up with her primary care. Discharge diagnosed New-onset diabetes mellitus Hypotension Pneumonia Hypertension Angioedema Tobacco use Disposition: DC-01 TO HOME OR SELFCARE Core Measure Documentation - Palliative Care Palliative Care/ Comfort Measures: Not Applicable - Core Measures Any of the following diagnoses?: none Exam - Constitutional Vitals: Temp Pulse Resp BP Pulse Ox 98.9 F 88 18 94/63 99 03/13/17 08:51 03/13/17 09:08 03/13/17 08:51 03/13/17 09:08 03/13/17 08:51 General appearance: Present: no acute distress - EENT Eyes: Present: PERRL ENT: hearing intact - Neck Neck: Present: supple - Respiratory Respiratory effort: normal Respiratory: bilateral: CTA - Cardiovascular Rhythm: regular Heart Sounds: Present: S1 & S2 - Abdominal General gastrointestinal: Present: soft, non-tender Female genitourinary: Present: deferred - Rectal Rectal Exam: deferred - Integumentary Integumentary: Present: clear, warm, dry - Musculoskeletal Musculoskeletal: strength equal bilaterally - Psychiatric Psychiatric: appropriate mood/affect - Neurologic Neurologic: moves all extremities - Allied Health Allied health notes reviewed: nursing Plan Diet: low fat, low cholesterol, low salt, diabetic Follow up with: [facility] [Provider Group] - 7 Days PRIMARY CARE, [Primary Care Provider] - 3-5 Days Prescriptions: ALBUTEROL NEB's [Proventil 0.083% NEBS] 2.5 mg IH Q4HRT PRN 30 Days nebu PRN Reason: Wheezing Diabetic Supplies,Miscell [Ez-Vac] 1 each MC Q8HR 30 Days miscell Diabetic Supplies,Miscell [Enlite Serter] 1 each MC Q8HR 30 Days miscell Hydrochlorothiazide [HCTZ] 12.5 mg PO QDAY 30 Days capsule Insulin NPH/Regular [NovoLIN 70/30] 15 unit SUB-Q QAMDIAB 30 Days units Levofloxacin [Levaquin TAB] 750 mg PO Q24HR #5 tablet Lisinopril/Hydrochlorothiazide [Zestoretic 20-12.5 mg] 1 each PO QDAY #30 tablet metFORMIN [Glucophage] 500 mg PO BIDDIAB #60 tablet traMADol [Ultram 50 MG tab] 50 mg PO Q6H PRN 14 Days tablet PRN Reason: Pain, Moderate (4-6) <SREE DIAMOND - Last Filed: 03/16/17 15:04> Providers - Providers Date of Admission: 03/09/17 21:23 Date of discharge: 03/14/17 Attending physician: SREE DIAMOND MD 03/09/17 21:26 Consult to Dietitian/Nutrition [CONS] Routine Physician Instructions: diabetic education insulin accuchck Reason For Exam: Reason for Consult: Diet education Primary care physician: [employer] Hospitalization Reason for admission: new onset diabetes mellitus type 2, bilateral pneumonia Pertinent studies: Chest x-ray, subtle bilateral infiltrates Time spent for discharge: 31 minutes - Discharge Diagnoses (1) Chest pain Status: Acute (2) Diabetes mellitus, new onset Status: Acute (3) Hyperglycemia Status: Acute (4) Pneumonia Status: Acute Qualifiers: Laterality: unspecified laterality (5) Hypertension Status: Chronic Qualifiers: Hypertension type: essential hypertension Qualified Code(s): I10 - Essential (primary) hypertension (6) Tobacco abuse Status: Chronic Core Measure Documentation - Palliative Care Palliative Care/ Comfort Measures: Not Applicable - Core Measures Any of the following diagnoses?: none Exam - Physical Exam Narrative exam: Not in cardiopulmonary distress. The patient appeared well nourished and normally developed. Vital signs as documented. Head exam is unremarkable. No scleral icterus . Neck is without jugular venous distension, thyromegaly, or carotid bruits. Lungs are clear to auscultation. Cardiac exam reveals regular rate and Rhythm. First and second heart sounds normal. No murmurs, rubs or gallops. Abdominal exam reveals normal bowel sounds, no masses, no organomegaly and no aortic enlargement. Extremities are nonedematous and both femoral and pedal pulses are normal. SUSTAINABILITY ENGINEER: Alert and oriented 3. No focal weakness. - Constitutional Vitals: Temp Pulse Resp BP Pulse Ox 98.0 F 86 18 148/83 100 03/14/17 11:54 03/14/17 11:54 03/14/17 11:54 03/14/17 11:54 03/14/17 11:54 Plan Activity: no restrictions Diet: low fat, low cholesterol, diabetic
[2017-03-13] MEDS ORDERED: NACL 0.9% 1000 ML 1,000 ML IV SCH (12:00)
--- NOTE | 2017-03-13 12:25 | XRay Report ---
AP CHEST: HISTORY: chest pain Compared to 03/09/17. AP view of the chest demonstrates a normal mediastinal and cardiac contour with clear lungs and normal bony and soft tissue structures. IMPRESSION: Unremarkable AP chest.
[2017-03-13] MEDS: TESSALON PERLES PO SCH ×2 (14:50→21:39)
[2017-03-13] MEDS: GLUCOPHAGE PO SCH ×2 (15:11→17:17)
--- NOTE | 2017-03-13 16:12 | Progress Note ---
<CHANDLER MILIAN - Last Filed: 03/13/17 16:12> Assessment and Plan Assessment and plan: Patient is a 56-year-old woman with a history of hypertension comes emergency room with complaints of polyuria, polydipsia, dry mouth 2 weeks. Also complaining of chest pain in the epigastric area. Hypotension Hold antihypertensive medication IV fluid bolus given Closely monitor blood pressure Disposition: Patient will be discharged tomorrow if BP continues to improve Pneumonia Most likely community-acquired pneumonia. Chest xray showed infiltrates Patient does complain of having mold in the house. Continue Levaquin IV Nebulizers when necessary. Chest Pain Most likely due to pneumonia coughing. Pain is resolved EKG normal sinus rhythm no ST elevation or T-wave inversion. Negative cardiac enzyme X3 Start on aspirin Nitroglycerin when necessary Morphine ordered for pain Cardiology consult Diabetes mellitus with Hyperglycemia/new onset Patient blood sugar remains suboptimally controlled. Accu-Chek before meals and at bedtime Sliding-scale insulin/NovoLog Continue on bedtime Levemir. Diabetic education. Hypertension Resume home antihypertensive medication IV hydralazine for SBP>160 Closely monitor blood pressure Tobacco abuse Smoking cessation nicotine patch. Patient strongly advised smoking. Angioedema Secondary to allergic reaction with Percocet. Percocet D/C and continue Ultram. Tobacco use Smoking cessation counseling done. Patient strongly advised to quit. DVT prophylaxis Lovenox History Interval history: Patient denies chest pain or shortness of breath Hospitalist Physical - Constitutional Vitals: Temp Pulse Resp BP Pulse Ox 98.9 F 88 18 94/63 99 03/13/17 08:51 03/13/17 09:08 03/13/17 08:51 03/13/17 09:08 03/13/17 08:51 General appearance: Present: mild distress, other (edema of the lips. Swelling around eyes.) - EENT Eyes: Present: PERRL ENT: hearing intact - Neck Neck: Present: supple - Respiratory Respiratory effort: normal Respiratory: bilateral: CTA - Cardiovascular Rhythm: regular Heart Sounds: Present: S1 & S2 - Abdominal General gastrointestinal: soft, non-tender - Integumentary Integumentary: Present: clear, warm, dry - Psychiatric Psychiatric: appropriate mood/affect - Neurologic Neurologic: moves all extremities - Allied Health Allied health notes reviewed: nursing Results - Labs CBC & Chem 7: 03/09/17 14:47 03/13/17 05:28 Labs: Laboratory Last Values WBC 8.8 K/mm3 (4.5-11.0) 03/09/17 14:47 RBC 4.69 M/mm3 (3.65-5.03) 03/09/17 14:47 Hgb 14.2 gm/dl (10.1-14.3) 03/09/17 14:47 Hct 41.9 % (30.3-42.9) 03/09/17 14:47 MCV 89 fl (79-97) 03/09/17 14:47 MCH 30 pg (28-32) 03/09/17 14:47 MCHC 34 % (30-34) 03/09/17 14:47 RDW 13.1 % (13.2-15.2) L 03/09/17 14:47 Plt Count 330 K/mm3 (140-440) 03/09/17 14:47 Lymph % (Auto) 28.0 % (13.4-35.0) 03/09/17 14:47 [place] % (Auto) 7.6 % (0.0-7.3) H 03/09/17 14:47 Eos % (Auto) 1.0 % (0.0-4.3) 03/09/17 14:47 Baso % (Auto) 1.3 % (0.0-1.8) 03/09/17 14:47 Lymph # 2.5 K/mm3 (1.2-5.4) 03/09/17 14:47 [place] # 0.7 K/mm3 (0.0-0.8) 03/09/17 14:47 Eos # 0.1 K/mm3 (0.0-0.4) 03/09/17 14:47 Baso # 0.1 K/mm3 (0.0-0.1) 03/09/17 14:47 Seg Neutrophils % 62.1 % (40.0-70.0) 03/09/17 14:47 Seg Neutrophils # 5.5 K/mm3 (1.8-7.7) 03/09/17 14:47 PT 12.6 Sec. (12.2-14.9) 03/09/17 14:47 INR 0.90 (0.87-1.13) 03/09/17 14:47 APTT 32.1 Sec. (24.2-36.6) 03/09/17 14:47 VBG pH 7.354 (7.320-7.420) 03/09/17 16:59 Sodium 134 mmol/L (137-145) L D 03/13/17 05:28 Potassium 3.8 mmol/L (3.6-5.0) 03/13/17 05:28 Chloride 95.4 mmol/L (98-107) L 03/13/17 05:28 Carbon Dioxide 21 mmol/L (22-30) L 03/13/17 05:28 Anion Gap 21 mmol/L 03/13/17 05:28 BUN 23 mg/dL (7-17) H 03/13/17 05:28 Creatinine 0.7 mg/dL (0.7-1.2) 03/13/17 05:28 Estimated GFR > 60 ml/min 03/13/17 05:28 BUN/Creatinine Ratio 33 % 03/13/17 05:28 Glucose 219 mg/dL (65-100) H 03/13/17 05:28 POC Glucose 192 (70-105) H 03/12/17 22:04 Hemoglobin A1c 11.8 % (4-6) H 03/09/17 14:47 Calcium 9.4 mg/dL (8.4-10.2) 03/13/17 05:28 Total Bilirubin 0.70 mg/dL (0.1-1.2) 03/09/17 14:47 AST 94 units/L (5-40) H 03/09/17 14:47 ALT 73 units/L (7-56) H 03/09/17 14:47 Alkaline Phosphatase 197 units/L (35-129) H 03/09/17 14:47 Total Creatine Kinase 359 units/L (30-135) H 03/09/17 16:59 CK-MB (CK-2) 2.1 ng/mL (0.0-4.0) 03/09/17 16:59 CK-MB (CK-2) Rel Index 0.5 (0-4) 03/09/17 16:59 Troponin T < 0.010 ng/mL (0.00-0.029) 03/09/17 20:50 Total Protein 8.9 g/dL (6.3-8.2) H 03/09/17 14:47 Albumin 4.8 g/dL (3.9-5) 03/09/17 14:47 Albumin/Globulin Ratio 1.2 % 03/09/17 14:47 Urine Color Yellow (Yellow) 03/09/17 17:55 Urine Turbidity Clear (Clear) 03/09/17 17:55 Urine pH 5.0 (5.0-7.0) 03/09/17 17:55 Ur Specific [place] 1.031 (1.003-1.030) H 03/09/17 17:55 Urine Protein <15 mg/dl mg/dL (Negative) 03/09/17 17:55 Urine Glucose (UA) >=500 mg/dL (Negative) 03/09/17 17:55 Urine Ketones Neg mg/dL (Negative) 03/09/17 17:55 Urine Blood Neg (Negative) 03/09/17 17:55 Urine Nitrite Neg (Negative) 03/09/17 17:55 Urine Bilirubin Neg (Negative) 03/09/17 17:55 Urine Urobilinogen < 2.0 mg/dL (<2.0) 03/09/17 17:55 Ur Leukocyte Esterase Neg (Negative) 03/09/17 17:55 Urine WBC (Auto) 1.0 /HPF (0.0-6.0) 03/09/17 17:55 Urine RBC (Auto) < 1.0 /HPF (0.0-6.0) 03/09/17 17:55 Urine Mucus Few /HPF 03/09/17 17:55 <SREE DIAMOND M - Last Filed: 03/14/17 08:42> Assessment and Plan Assessment and plan: I saw and evaluated the patient. I agree with the findings and the plan of care as documented in the Nurse Practitioner's progress note. Hospitalist Physical - Constitutional Vitals: Temp Pulse Resp BP Pulse Ox 97.9 F 81 18 141/88 100 03/14/17 04:50 03/14/17 04:50 03/14/17 04:50 03/14/17 04:50 03/14/17 04:50 Results - Labs CBC & Chem 7: 03/09/17 14:47 03/13/17 05:28 Labs: Laboratory Last Values WBC 8.8 K/mm3 (4.5-11.0) 03/09/17 14:47 RBC 4.69 M/mm3 (3.65-5.03) 03/09/17 14:47 Hgb 14.2 gm/dl (10.1-14.3) 03/09/17 14:47 Hct 41.9 % (30.3-42.9) 03/09/17 14:47 MCV 89 fl (79-97) 03/09/17 14:47 MCH 30 pg (28-32) 03/09/17 14:47 MCHC 34 % (30-34) 03/09/17 14:47 RDW 13.1 % (13.2-15.2) L 03/09/17 14:47 Plt Count 330 K/mm3 (140-440) 03/09/17 14:47 Lymph % (Auto) 28.0 % (13.4-35.0) 03/09/17 14:47 [place] % (Auto) 7.6 % (0.0-7.3) H 03/09/17 14:47 Eos % (Auto) 1.0 % (0.0-4.3) 03/09/17 14:47 Baso % (Auto) 1.3 % (0.0-1.8) 03/09/17 14:47 Lymph # 2.5 K/mm3 (1.2-5.4) 03/09/17 14:47 [place] # 0.7 K/mm3 (0.0-0.8) 03/09/17 14:47 Eos # 0.1 K/mm3 (0.0-0.4) 03/09/17 14:47 Baso # 0.1 K/mm3 (0.0-0.1) 03/09/17 14:47 Seg Neutrophils % 62.1 % (40.0-70.0) 03/09/17 14:47 Seg Neutrophils # 5.5 K/mm3 (1.8-7.7) 03/09/17 14:47 PT 12.6 Sec. (12.2-14.9) 03/09/17 14:47 INR 0.90 (0.87-1.13) 03/09/17 14:47 APTT 32.1 Sec. (24.2-36.6) 03/09/17 14:47 VBG pH 7.354 (7.320-7.420) 03/09/17 16:59 Sodium 134 mmol/L (137-145) L D 03/13/17 05:28 Potassium 3.8 mmol/L (3.6-5.0) 03/13/17 05:28 Chloride 95.4 mmol/L (98-107) L 03/13/17 05:28 Carbon Dioxide 21 mmol/L (22-30) L 03/13/17 05:28 Anion Gap 21 mmol/L 03/13/17 05:28 BUN 23 mg/dL (7-17) H 03/13/17 05:28 Creatinine 0.7 mg/dL (0.7-1.2) 03/13/17 05:28 Estimated GFR > 60 ml/min 03/13/17 05:28 BUN/Creatinine Ratio 33 % 03/13/17 05:28 Glucose 219 mg/dL (65-100) H 03/13/17 05:28 POC Glucose 144 (70-105) H 03/13/17 20:16 Hemoglobin A1c 11.8 % (4-6) H 03/09/17 14:47 Calcium 9.4 mg/dL (8.4-10.2) 03/13/17 05:28 Total Bilirubin 0.70 mg/dL (0.1-1.2) 03/09/17 14:47 AST 94 units/L (5-40) H 03/09/17 14:47 ALT 73 units/L (7-56) H 03/09/17 14:47 Alkaline Phosphatase 197 units/L (35-129) H 03/09/17 14:47 Total Creatine Kinase 359 units/L (30-135) H 03/09/17 16:59 CK-MB (CK-2) 2.1 ng/mL (0.0-4.0) 03/09/17 16:59 CK-MB (CK-2) Rel Index 0.5 (0-4) 03/09/17 16:59 Troponin T < 0.010 ng/mL (0.00-0.029) 03/09/17 20:50 Total Protein 8.9 g/dL (6.3-8.2) H 03/09/17 14:47 Albumin 4.8 g/dL (3.9-5) 03/09/17 14:47 Albumin/Globulin Ratio 1.2 % 03/09/17 14:47 Urine Color Yellow (Yellow) 03/09/17 17:55 Urine Turbidity Clear (Clear) 03/09/17 17:55 Urine pH 5.0 (5.0-7.0) 03/09/17 17:55 Ur Specific [place] 1.031 (1.003-1.030) H 03/09/17 17:55 Urine Protein <15 mg/dl mg/dL (Negative) 03/09/17 17:55 Urine Glucose (UA) >=500 mg/dL (Negative) 03/09/17 17:55 Urine Ketones Neg mg/dL (Negative) 03/09/17 17:55 Urine Blood Neg (Negative) 03/09/17 17:55 Urine Nitrite Neg (Negative) 03/09/17 17:55 Urine Bilirubin Neg (Negative) 03/09/17 17:55 Urine Urobilinogen < 2.0 mg/dL (<2.0) 03/09/17 17:55 Ur Leukocyte Esterase Neg (Negative) 03/09/17 17:55 Urine WBC (Auto) 1.0 /HPF (0.0-6.0) 03/09/17 17:55 Urine RBC (Auto) < 1.0 /HPF (0.0-6.0) 03/09/17 17:55 Urine Mucus Few /HPF 03/09/17 17:55
[2017-03-13] MEDS: NACL 0.9% 1000 ML 1,000 ML IV SCH ×3 (17:56→23:59)
[2017-03-13] MEDS: TYLENOL PO PRN (23:58)
[2017-03-14] MEDS: TESSALON PERLES PO SCH (06:57)
[2017-03-14] MEDS: NACL 0.9% 1000 ML 1,000 ML IV SCH (06:57)
[2017-03-14] MEDS: LEVAQUIN PO SCH (09:55)
[2017-03-14] MEDS: GLUCOPHAGE PO SCH (09:55)
[2017-03-14] MEDS: NOVOLOG SUB-Q SCH (09:57)
[2017-03-14] MEDS: LOVENOX SUB-Q SCH (09:57)
[2017-03-14 12:45] VITALS: BP 148/83
--- NOTE | 2017-03-20 05:49 | Treadmill Report ---
THALLIUM STRESS TEST LEFT VENTRICLE: Left ventricular chamber size is within normal. Perfusion study demonstrates homogeneous uptake of the tracer in all segments, no significant perfusion defects identified. Gated analysis demonstrates normal left ventricular systolic function, ejection fraction 66%. CONCLUSION: Normal myocardial perfusion study. JOB# [id number] CA/NTS
== END 2017-03-14 13:05 | disposition home or self-care (01) | DRG 637 ==
LOC: ED 14:19 → 4A 21:23
PROVIDERS: ADMIT Internal Medicine; ATTEND Internal Medicine
DX: E11.65 Type 2 diabetes mellitus with hyperglycemia (principal); J18.9 Pneumonia, unspecified organism; I16.0 Hypertensive urgency; T78.3XXA Angioneurotic edema, initial encounter; I10 Essential (primary) hypertension; I95.9 Hypotension, unspecified; Z98.51 Tubal ligation status; Z72.0 Tobacco use; Z86.73 Personal history of transient ischemic attack (TIA), and cerebral infarction without residual deficits; Z71.6 Tobacco abuse counseling; Z82.49 Family history of ischemic heart disease and other diseases of the circulatory system; T40.2X5A Adverse effect of other opioids, initial encounter; T39.1X5A Adverse effect of 4-Aminophenol derivatives, initial encounter
CPT/HCPCS: 36415; 71010; 78452; 80048; 80053; 81001; 82550; 82553; 82805; 82962; 83036; 84484; 85025; 85610; 85730; 87040; 93005; 93010; 93017; 96374; 99285; A9502; J1650; J1815; J1818; J2785; J7030

== ENCOUNTER 2017-04-19 13:10 | Outpatient (CLI) | payer MEDICAID ==
[2017-04-19 13:24] LABS: Basophils # (Auto) 0.1 K/mm3 (0.0-0.1); Basophils % (Auto) 0.7 % (0.0-1.8); Eosinophils # (Auto) 0.1 K/mm3 (0.0-0.4); Eosinophils % (Auto) 1.7 % (0.0-4.3); Hematocrit 39.3 % (30.3-42.9); Hemoglobin 13.4 gm/dl (10.1-14.3); Lymphocytes # (Auto) 2.9 K/mm3 (1.2-5.4); Lymphocytes % (Auto) 32.9 % (13.4-35.0); Mean Corpuscular HGB Conc 34 % (30-34); Mean Corpuscular Hemoglobin 30 pg (28-32); Mean Corpuscular Volume 89 fl (79-97); Monocytes # (Auto) 0.7 K/mm3 (0.0-0.8); Monocytes % (Auto) 8.1 % (0.0-7.3); Platelet Count 369 K/mm3 (140-440); Red Blood Count 4.41 M/mm3 (3.65-5.03); Red Cell Distribution Width 14.1 % (13.2-15.2)
[2017-04-19 13:44] LABS: BUN/Creatinine Ratio 16; Blood Urea Nitrogen 11 mg/dL (7-17); Calcium 9.9 mg/dL (8.4-10.2); Hemolysis Index 6
== END 2017-04-19 13:11 | disposition home or self-care (01) ==
LOC: LAB 13:10
PROVIDERS: ATTEND Radiology Diagnostic Radiology
DX: D25.9 Leiomyoma of uterus, unspecified (principal)
CPT/HCPCS: 36415; 80048; 85025

== ENCOUNTER 2018-05-19 19:45 | Emergency (ER) | payer MEDICAID, OTHER ==
[2018-05-19] MEDS ORDERED: ZOFRAN IV ONE (19:57)
[2018-05-19] MEDS ORDERED: NACL 0.9% 1000 ML 1,000 ML IV ONE ×2 (19:57→21:35)
[2018-05-19] MEDS ORDERED: SUBLIMAZE IV ONE (19:57)
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
[2018-05-19 20:49] LABS: Basophils % (Auto) 0.3 % (0.0-1.8); Eosinophils # (Auto) 0.1 K/mm3 (0.0-0.4); Eosinophils % (Auto) 1.3 % (0.0-4.3); Hematocrit 40.6 % (30.3-42.9); Hemoglobin 14.4 gm/dl (10.1-14.3); Lymphocytes # (Auto) 2.2 K/mm3 (1.2-5.4); Lymphocytes % (Auto) 32.2 % (13.4-35.0); Mean Corpuscular HGB Conc 35 % (30-34); Mean Corpuscular Volume 85 fl (79-97); Monocytes # (Auto) 0.5 K/mm3 (0.0-0.8); Platelet Count 356 K/mm3 (140-440); Red Cell Distribution Width 13.9 % (13.2-15.2)
[2018-05-19 21:00] LABS: INR 0.9 (0.87-1.13)
[2018-05-19 21:25] LABS: Alanine Aminotransferase 38 units/L (7-56); Albumin 4.7 g/dL (3.9-5); BUN/Creatinine Ratio 16; Blood Urea Nitrogen 11 mg/dL (7-17); Calcium 10.2 mg/dL (8.4-10.2); Hemolysis Index 22
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
[2018-05-19] MEDS ORDERED: HumuLIN R IV ONE (21:35)
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
[2018-05-19] MEDS ORDERED: DILAUDID IV ONE (21:37)
[2018-05-19 21:40] LABS: Bilirubin,Urine NEG (Negative); Blood,Urine NEG (Negative); Color,Urine Straw (Yellow); Urobilinogen,Urine < 2.0 mg/dL (<2.0)
[2018-05-19 23:04] LABS: Amphetamine Screen,Urine PRESUMPTIVE NEGATIVE; Benzodiazepines Screen,Urine PRESUMPTIVE NEGATIVE; Cannabinoid Screen,Urine PRESUMPTIVE NEGATIVE; Cocaine Screen,Urine PRESUMPTIVE NEGATIVE; Methadone Screen,Urine PRESUMPTIVE NEGATIVE; Opiate Screen,Urine PRESUMPTIVE NEGATIVE
[2018-05-19 23:36] VITALS: BP 126/76
--- NOTE | 2018-05-20 01:25 | Cat Scan Report ---
FINAL REPORT EXAM: CT CHEST W CON HISTORY: Pain COMPARISON: Chest x-ray from yesterday. TECHNIQUE: Contiguous axial images were obtained. Additional sagittal and coronal reformatted images were obtained. Administration of IV contrast given per institution protocol. Images submitted for in terpretation. 100 cc Omnipaque 300. FINDINGS: Heart borderline enlarged. Thoracic aorta normal in caliber. Ascending thoracic aorta measures 3 cent imeters in diameter. No acute dissection or rupture. Mild calcified plaque along the thoracic aorta. No pulmonary embolus. No enlarged intrathoracic or axillary lymph nodes. Small nodular airspace opacity centrally within the left lower lobe measuring 1.5 x 1.2 centimeters ( series 2, image 66). Small nodular densities are present within the left lower lobe concerning for in fection. Nonspecific linear densities mid to lower lungs. No large airspace consolidation or pleural effusion. There 4 millimeter low-attenuation lesions within the left and right thyroid lobes. Fatty infiltration of the liver. Mild degenerative changes of the thoracic spine. IMPRESSION: No pulmonary embolus. Small nodular densities left lower lobe concerning for infection. No pleural effusion.
--- NOTE | 2018-05-20 01:34 | Cat Scan Report ---
FINAL REPORT EXAM: CT UPPER EXTREM LT WO CON HISTORY: left shoulder pain TECHNIQUE: Helical CT was performed of the left shoulder in the axial plane. Images are reconstructe d in the sagittal and coronal planes. PRIORS: None. FINDINGS: The glenohumeral joint is normally aligned. There is mild glenoid osteophyte formation. The acromiocl avicular joint is normally aligned. There is cortical irregularity of the distal clavicle. There is degenerative cystic change in the superolateral humeral head near the greater tuberosity. Th e muscles of the rotator cuff appear grossly intact. The left lung apex is clear. IMPRESSION: 1. No evidence of acute fracture 2. Mild degenerative changes of the acromioclavicular and glenohumeral joints
--- NOTE | 2018-05-20 01:48 | Cat Scan Report ---
FINAL REPORT EXAM: CT ABDOMEN PELVIS W CON HISTORY: pain, elevated liver enzymes TECHNIQUE: Helical CT scan through the abdomen and pelvis during intravenous injection of iodinated contrast. Images are reconstructed in the sagittal and coronal planes. Oral contrast was not given. 1 00 cc of Omnipaque 300 were used for IV contrast agent PRIORS: None. FINDINGS: Images through the lung bases show mild right basilar subsegmental atelectasis. There is diffuse low-attenuation of the liver consistent with fatty infiltration. The liver is enlarg ed measuring 19.3 cm in craniocaudal dimension. The pancreas, spleen and adrenal glands appear normal . There is a calcified stone in an otherwise normal-appearing gallbladder. The kidneys appear normal. There are numerous calcified uterine fibroids. Ovaries appear grossly normal. The stomach appears grossly within normal limits. There are no abnormally dilated loops of bowel or acute inflammatory changes. A normal-appearing appe ndix is identified. There is atherosclerotic calcification in the abdominal aorta without aneurysm. There is degenerative facet disease at L4-5. IMPRESSION: 1. Diffuse fatty infiltration of the liver with hepatomegaly 2. Calcified stone in another flynn normal-appearing gallbladder 3. Multiple calcified uterine fibroids
== END 2018-05-20 02:25 | disposition home or self-care (01) ==
LOC: ED 19:45
DX: S43.402A Unspecified sprain of left shoulder joint, initial encounter (principal); E11.65 Type 2 diabetes mellitus with hyperglycemia; Z79.4 Long term (current) use of insulin; I10 Essential (primary) hypertension; Z86.73 Personal history of transient ischemic attack (TIA), and cerebral infarction without residual deficits; Z98.51 Tubal ligation status; Z79.899 Other long term (current) drug therapy; V89.2XXA Person injured in unspecified motor-vehicle accident, traffic, initial encounter; Y93.89 Activity, other specified; Y99.8 Other external cause status; Y92.410 Unspecified street and highway as the place of occurrence of the external cause
CPT/HCPCS: 36415; 71045; 71260; 73030; 73060; 73200; 74177; 80053; 80307; 81001; 82550; 82805; 82962; 85025; 85610; 85730; 96361; 96374; 96375; 99285; G0480; J1170; J2405; J3010; J7030; Q9967; 80320; J1815

== ENCOUNTER 2019-02-08 18:10 | Emergency (ER) | payer OTHER, MEDICAID ==
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
[2019-02-08 18:24] VITALS: BP 149/99
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
== END 2019-02-08 20:45 | disposition home or self-care (01) ==
LOC: ED 18:10
DX: S46.912A Strain of unspecified muscle, fascia and tendon at shoulder and upper arm level, left arm, initial encounter (principal); S76.012A Strain of muscle, fascia and tendon of left hip, initial encounter; M19.012 Primary osteoarthritis, left shoulder; M16.12 Unilateral primary osteoarthritis, left hip; I10 Essential (primary) hypertension; E11.9 Type 2 diabetes mellitus without complications; Z86.73 Personal history of transient ischemic attack (TIA), and cerebral infarction without residual deficits; Z98.51 Tubal ligation status; Z79.899 Other long term (current) drug therapy; V49.49XA Driver injured in collision with other motor vehicles in traffic accident, initial encounter; Y93.89 Activity, other specified; Y92.410 Unspecified street and highway as the place of occurrence of the external cause; Y99.8 Other external cause status

== ENCOUNTER 2019-05-09 21:37 | Emergency (ER) | payer MEDICAID, OTHER ==
[2019-05-09] MEDS ORDERED: IBUPROFEN 800 MG TAB PO ONE (22:32)
[2019-05-09] MEDS ORDERED: HYDROcodone/ACETAMINOPHEN 5-325 MG TAB PO ONE (22:32)
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
[2019-05-10 00:42] VITALS: BP 132/76
== END 2019-05-09 23:40 | disposition home or self-care (01) ==
LOC: ED 21:37
DX: S00.83XA Contusion of other part of head, initial encounter (principal); I10 Essential (primary) hypertension; E11.9 Type 2 diabetes mellitus without complications; Z86.73 Personal history of transient ischemic attack (TIA), and cerebral infarction without residual deficits; Z98.51 Tubal ligation status; Z98.890 Other specified postprocedural states; Z79.1 Long term (current) use of non-steroidal anti-inflammatories (NSAID); Z79.899 Other long term (current) drug therapy; Y04.8XXA Assault by other bodily force, initial encounter; Y93.89 Activity, other specified; Y92.89 Other specified places as the place of occurrence of the external cause; Y99.8 Other external cause status
CPT/HCPCS: 82962